=== PATIENT | female | born 1960 | race Caucasian/White ===

== ENCOUNTER 2024-08-16 06:19 | Day surgery (SDC) | payer MEDICARE, OTHER ==
[2024-08-12 12:25] VITALS: BMI 34.3
[2024-08-16 07:09] LABS: #Basophils 0.07 10x3/uL (0.0-0.2); #Eosinphils 0.22 10x3/uL (0.0-0.5); #Monocytes 0.77 10x3/uL (0.0-1.1); #Neutrophils 4.22 10x3/uL (1.5-8.4); %Basophils 0.9 % (0.0-2.0); %Monocytes 10.4 % (0.0-10.0); %Neutrophils 57.3 % (40.0-75.0); Hematocrit 43.4 % (34.9-44.5); Hemoglobin 14.2 g/dL (12.0-15.5); Mean Corpuscular HGB CONC 32.7 g/dL (32.0-36.0); Mean Corpuscular Hemoglobin 31.5 pg (27.0-33.0); Mean Corpuscular Volume 96.2 fL (81.6-98.3); Mean Platelet Volume 10.2 fL (7.4-10.4); Platelet Count 246 10x3/uL (150-450); RBC Distribution Width 12.6 % (11.5-14.5); Red Blood Cell (RBC) Count 4.51 10x6/uL (3.90-5.03); White Blood Cell (WBC) Count 7.4 10x3/uL (3.5-10.5)
[2024-08-16 07:21] LABS: Anion Gap 16 mmol/L (10-20); BUN (Urea Nitrogen) 13 mg/dL (9.8-20.1); Calc. Creatinine Clearance 100 mL/min (70-130); Calcium 9.4 mg/dL (7.8-10.44); Carbon Dioxide 22 mmol/L (23-31); Chloride 107 mmol/L (98-107); Estimated GFR 94; Glucose 110 mg/dL (80-115); Potassium 4.3 mmol/L (3.5-5.1); Sodium 141 mmol/L (136-145)
[2024-08-16] MEDS ORDERED: Bupivacaine HCl 0.5%/Epinephrine 1:200,000/PF 30 ml Vial ONE (08:09)
[2024-08-16] MEDS ORDERED: Lidocaine 2% PF 5 ML VIAL ONE (08:12)
[2024-08-16] MEDS ORDERED: PROPOFOL 20 ML ONE (08:13)
[2024-08-16] MEDS ORDERED: fentaNYL 50 mcg/mL 1 mL Vial ONE ×2 (08:16→09:13)
[2024-08-16] MEDS ORDERED: CEFAZOLIN 2 GM VIAL ONE (08:35)
[2024-08-16] MEDS ORDERED: Ketorolac Tromethamine 30 MG (1 mL) VIAL ONE (09:44)
[2024-08-16] MEDS ORDERED: Dexamethasone 4 mg/ml Vial ONE (09:51)
[2024-08-16] MEDS ORDERED: Ondansetron PF 4 MG/2 ML Vial ONE (09:51)
[2024-08-16] MEDS ORDERED: HYDROcodone/Acetaminophen 5/325 mg Tablet ONE (10:51)
== END 2024-08-16 11:40 | disposition home or self-care (01) ==
LOC: CSHSDC 06:19
PROVIDERS: ATTEND Surgery
PROC: 0HBT0ZZ Excision of Right Breast, Open Approach (ICD-10-PCS; principal; 2024-08-16)
DX: N60.81 Other benign mammary dysplasias of right breast (principal); N60.11 Diffuse cystic mastopathy of right breast; N60.21 Fibroadenosis of right breast; R92.1 Mammographic calcification found on diagnostic imaging of breast; I10 Essential (primary) hypertension; E03.9 Hypothyroidism, unspecified; K21.9 Gastro-esophageal reflux disease without esophagitis; E78.00 Pure hypercholesterolemia, unspecified; Z87.891 Personal history of nicotine dependence; Z79.899 Other long term (current) drug therapy
CPT/HCPCS: 19281; 19301; 76098; 80048; 85025; 93005; C1776; J1100; J1885; J2001; J2405; J2704; J3010; 36415; 88307; 93010